=== PATIENT | female | born 1995 | race Caucasian/White ===

== ENCOUNTER → 2018-08-15 | Day surgery (SDC) | payer OTHER ==
[~2018-08-15] VITALS: Ht 162.5 cm; Wt 68.0 kg
[~2018-08-15] MED LIST: CIPRO250 MG PO; CLARITIN10 MG PO; DONNATAL1 TAB PO; KETOROLAC10 MG PO; MIRALAX POWDER255 GM PO; OMEPRAZOLE D/R20 MG PO; ZITHROMAX Z PA250 MG PO
--- NOTE | ~2018-08-15 | O ---
[place], [place] OPERATIVE NOTE NAME: MAKAYLA WEBSTER UNIT #: [id number] ROOM: DOCTOR: TUNDE MARSH MD BIRTHDATE: [birth year] DOS: 08/15/2018 GASTROSCOPIC REPORT INDICATIONS: This is a 22-year-old patient who presented with nausea, vomiting, and nocturnal emesis. ALLERGIES: SULFA. FAMILY HISTORY: Noncontributory. PAST SURGICAL HISTORY: . PAST MEDICAL HISTORY: None. SOCIAL HISTORY: Nonsmoker. Social alcohol consumer. CT scan of the abdomen and pelvis has been negative. PROCEDURE: Today's procedure part of investigation is panendoscopy plus biopsy. PREMEDICATION: Propofol. SCOPE: Olympus forward-viewing gastroscope Q10 video. REPORT: After putting the patient in left lateral position and application of lubricant to the scope, the scope was introduced under direct visualization, advanced through the length of esophagus without difficulty. Gastric pouch was entered. Mild gastritis seen. Antral biopsy obtained. Duodenal bulb, second and third part within normal limits. Air was suctioned out. The patient extubated after bilious matter were suctioned out. IMPRESSION: Bile reflux gastritis. PLAN AND DISCUSSION: I am going to start her on omeprazole 20 mg daily. I am going to proceed with antireflux elevation of the head of the bed 6 inch at least all time. Abstinence from solid food ingestion 5 hours prior to retiring and clinical reassessment. If her symptomatology persist, I may use very small dose of prokinetics after reassessment. Thank you very much indeed for your kind referral. [place], [place] OPERATIVE NOTE NAME: MAKAYLA WEBSTER UNIT #: [id number] ROOM: DOCTOR: TUNDE MARSH MD BIRTHDATE: [birth year] TUNDE MARSH MD CM:OPRECORD:OPERATIVE NOTE [id number] KAYDEN MARSH MD 08/15/18 1225 interface
[2018-08-15 10:44] VITALS: BP 109/65
[2018-08-15 11:30] VITALS: BP 90/56
[2018-08-15 11:45] VITALS: BP 99/63
[2018-08-15 11:56] VITALS: BP 114/74
== END ==
LOC: SDC 08-12 08:00
DX: K29.50 Unspecified chronic gastritis without bleeding (principal); K21.9 Gastro-esophageal reflux disease without esophagitis; Z88.2 Allergy status to sulfonamides; Z98.890 Other specified postprocedural states

== ENCOUNTER 2020-10-03 22:25 | Emergency (ER) | payer OTHER ==
[2020-10-03 23:36] LABS: BASO % 0.5 % (0.0-1.0); EOS # 0.1 10*3/uL (0.0-0.4); EOS % 1.6 % (1.0-4.0); HEMATOCRIT 39.2 % (37.0-47.0); LYMPH # 2.8 10*3/uL (1.3-4.4); LYMPH % 51.5 % (27.0-41.0); MEAN CELL VOLUME 83.6 fl (81.0-99.0); MEAN CORPUSCULAR HGB 27.1 pg (27.0-31.0); MEAN CORPUSCULAR HGB CONC 32.4 g/dl (33.0-37.0); MEAN PLATELET VOLUME 11.2 fl (9.6-12.3); MONO # 0.3 10*3/uL (0.1-1.0); MONO % 5.5 % (3.0-9.0); NEUT # 2.2 10*3/uL (2.3-7.9); NEUT % 40.7 % (47.0-73.0); PLATELET COUNT AUTOMATED 207 10*3/uL (130-400); RED BLOOD COUNT 4.69 10*6/uL (4.10-5.10); RED CELL DISTRI WIDTH 12.4 % (0-14.5); WHITE BLOOD COUNT 5.5 10*3/uL (4.8-10.8)
[2020-10-03 23:49] LABS: BUN 11 mg/dl (7-24); CHLORIDE 107 mmol/L (98-107); CREATININE 0.81 mg/dL (0.55-1.02); POTASSIUM 4.1 mmol/L (3.5-5.1); SODIUM 138 mmol/L (136-145)
== END 2020-10-04 02:22 | disposition home or self-care (01) ==
LOC: ED 22:25
PROVIDERS: Internal Medicine
DX: K62.5 Hemorrhage of anus and rectum (principal); R10.84 Generalized abdominal pain; Z88.2 Allergy status to sulfonamides; Z79.899 Other long term (current) drug therapy

== ENCOUNTER 2022-11-27 08:31 | Emergency (ER) | payer OTHER ==
[2022-11-27 09:09] LABS: BASO % 0.5 % (0.0-1.0); EOS # 0.1 10*3/uL (0.0-0.4); EOS % 1.6 % (1.0-4.0); HEMATOCRIT 31.4 % (37.0-47.0); LYMPH # 1.8 10*3/uL (1.3-4.4); LYMPH % 32.2 % (27.0-41.0); MEAN CORPUSCULAR HGB CONC 33.8 g/dl (33.0-37.0); MEAN PLATELET VOLUME 11.5 fl (9.6-12.3); MONO # 0.4 10*3/uL (0.1-1.0); MONO % 6.9 % (3.0-9.0); NEUT # 3.2 10*3/uL (2.3-7.9); NEUT % 58.6 % (47.0-73.0); PLATELET COUNT AUTOMATED 159 10*3/uL (130-400); RED BLOOD COUNT 3.65 10*6/uL (4.10-5.10); RED CELL DISTRI WIDTH 12.6 % (0-14.5); WHITE BLOOD COUNT 5.5 10*3/uL (4.8-10.8)
[2022-11-27 09:20] LABS: ACT PARTIAL THROMBO TIME 23.1 SECONDS (20.0-32.1); INTERNATIONAL NORM RATIO 1.1 (2.0-3.5)
[2022-11-27 09:25] LABS: ALKALINE PHOSPHATASE 42 U/L (46-116); BUN 14 mg/dl (9-23); CHLORIDE 108 mmol/L (98-107); POTASSIUM 3.8 mmol/L (3.4-5.1); SGPT/ALT 10 U/L (10-49); TOTAL PROTEIN 6.2 gm/dL (6.0-8.0)
== END 2022-11-27 11:59 | disposition home or self-care (01) ==
LOC: ED 08:31
PROVIDERS: Emergency Medicine
DX: O03.4 Incomplete spontaneous abortion without complication (principal); Z88.2 Allergy status to sulfonamides; Z98.890 Other specified postprocedural states; Z90.49 Acquired absence of other specified parts of digestive tract

== ENCOUNTER → 2024-12-03 | Outpatient (CLI) | payer OTHER ==
[2024-12-03 18:01] LABS: BASO % 0.4 % (0.0-1.0); EOS # 0.2 10*3/uL (0.0-0.4); EOS % 3.9 % (1.0-4.0); HEMATOCRIT 43.4 % (37.0-47.0); MEAN CELL VOLUME 89.9 fl (81.0-99.0); MEAN CORPUSCULAR HGB CONC 32.3 g/dl (33.0-37.0); MEAN PLATELET VOLUME 12.7 fl (9.6-12.3); MONO # 0.4 10*3/uL (0.1-1.0); MONO % 7.7 % (3.0-9.0); NEUT # 2.4 10*3/uL (2.3-7.9); NEUT % 50.8 % (47.0-73.0); PLATELET COUNT AUTOMATED 174 10*3/uL (130-400); RED BLOOD COUNT 4.83 10*6/uL (4.10-5.10); RED CELL DISTRI WIDTH 13.2 % (0-14.5); WHITE BLOOD COUNT 4.7 10*3/uL (4.8-10.8)
[2024-12-03 18:14] LABS: ALKALINE PHOSPHATASE 58 U/L (46-116); BUN 14 mg/dl (9-23); CHLORIDE 104 mmol/L (98-107); CHOLESTEROL 137 mg/dL (<200); LDL CHOLESTEROL 48 mg/dL (9-159); POTASSIUM 4.1 mmol/L (3.4-5.1); SGPT/ALT 13 U/L (5-49); TOTAL PROTEIN 7.3 gm/dL (6.0-8.0); TRIGLYCERIDES 39 mg/dl (<150)
[2024-12-03 18:17] LABS: VITAMIN D, 25-HYDROXY 95.6 ng/mL (30-100)
[2024-12-06 11:04] LABS: TESTOS, FREE 1.2 pg/mL (0.0-4.2)
== END | disposition home or self-care (01) ==
LOC: LAB 17:50
PROVIDERS: ATTEND Nurse Practitioner Family
DX: L65.9 Nonscarring hair loss, unspecified (principal); R53.82 Chronic fatigue, unspecified; Z13.220 Encounter for screening for lipoid disorders; Z76.89 Persons encountering health services in other specified circumstances; F51.01 Primary insomnia